=== PATIENT | female | born 1930 | race Caucasian/White ===

== ENCOUNTER 2018-05-31 22:54 | Emergency (ER) | payer MEDICARE, OTHER ==
[2018-05-31 23:17] LABS: BASOPHILS % (AUTO) 0 % (0-3); EOSINOPHILS % (AUTO) 4 % (0-9); HEMATOCRIT 33 % (35-47); HEMOGLOBIN 10.8 gm/dl (12.0-15.5); MEAN CORPUSCULAR HEMOGLOBIN 32.3 pg (27.0-32.0); MEAN CORPUSCULAR HGB CONC 32.8 gm/dl (32.0-36.0); MONOCYTES % (AUTO) 6.8 % (0-12); NEUTROPHILS % (AUTO) 61.5 % (37-80)
[2018-05-31 23:20] LABS: MEAN CORPUSCULAR VOLUME 99 fL (81-99)
[2018-05-31 23:34] VITALS: TEMP 97.1
[2018-05-31 23:37] LABS: ALBUMIN 3.1 gm/dl (3.4-5.0); ALKALINE PHOSPHATASE 70 IU/L (46-116); ALT 20 IU/L (14-63); AST 15 IU/L (15-37); BILIRUBIN,TOTAL 0.5 mg/dl (0.2-1.0); BLOOD UREA NITROGEN 38 mg/dl (7-18); CALCIUM 8.9 mg/dl (8.5-10.1); CHLORIDE 105 mMol/L (98-107); CREATININE 0.84 mg/dl (0.60-1.00); GLUCOSE 97 mg/dl (74-106); SODIUM 143 mMol/L (136-145); TOTAL PROTEIN 5.9 gm/dl (6.4-8.2); TROP I < 0.017 ng/ml (0.000-0.056)
[2018-05-31] MEDS ORDERED: SODIUM CHLORIDE 0.9% 1000 ML SOL IV SCH (23:45)
[2018-05-31] MEDS ORDERED: SODIUM CHLORIDE 0.9% FLUSH 10 ML SOL IV PRN (23:50)
[2018-06-01 01:39] LABS: APPEARANCE,URINE Slightly Cloudy; BILIRUBIN,URINE NEGATIVE (NEGATIVE); COLOR,URINE Yellow; GLUCOSE, URINE (UA) NEGATIVE (NEGATIVE); KETONES,URINE NEGATIVE (NEGATIVE); LEUKOCYTE ESTERASE ,URINE 1+ (NEGATIVE); NITRATE,URINE NEGATIVE (NEGATIVE); OCCULT BLOOD,URINE NEGATIVE (NEG-TRACE); PH,URINE 5.5; UROBILINOGEN,URINE 0.2 (0.2-1.0 EU)
[2018-06-01 01:51] LABS: CRYSTALS NEGATIVE (0-3 AVE/HPF); RBC,URINE 0-1 (0-3AV/HPF); WBC,URINE 20-30 (0-5AV/HPF)
[2018-06-01 01:52] LABS: BACTERIA 2+ (< 1+)
[2018-06-01 02:27] VITALS: RESP 14
[2018-06-01] MEDS ORDERED: CIPROFLOXACIN HCL 500 MG TAB PO ONE ×2 (04:01→04:19)
[2018-06-01 05:08] VITALS: PULSE 49; O2SAT 97
[2018-06-01 05:09] VITALS: BP 130/53
== END 2018-06-01 04:53 | DRG 605 ==
LOC: ED 22:54
DX: S00.83XA Contusion of other part of head, initial encounter (principal); W19.XXXA Unspecified fall, initial encounter; R82.99 Other abnormal findings in urine
CPT/HCPCS: 36415; 70450; 72125; 80053; 81001; 84484; 85025; 87088; 96365; 96366; 99284; 99285; A9270-GY